=== PATIENT | female | born 1960 | race Caucasian/White ===

== ENCOUNTER → 2019-03-27 | Outpatient (CLI) | payer OTHER ==
--- NOTE | 2019-03-27 16:13 | RAD ---
EXAM: 3 Views Left Shoulder DATE: 03/27/2019 12:00 AM INDICATION: Left shoulder pain COMPARISON: No Prior FINDINGS: There is no evidence for acute fracture or dislocation. AC joint is congruent. Humeral head is not high riding. IMPRESSION: 1. No acute fracture or dislocation. Electronically signed by: Tony Villagomez MD (03/27/2019 4:10 PM) [id number]
== END | disposition home or self-care (01) ==
LOC: DXRAD 14:20
PROVIDERS: ATTEND Orthopaedic Surgery
DX: M25.512 Pain in left shoulder (principal)
CPT/HCPCS: 73030